=== PATIENT | male | born 1995 | race African-American/Black ===

== ENCOUNTER 2018-06-30 19:53 | Emergency (ER) | payer BC, SELFPAY ==
[2018-06-30 19:58] VITALS: BP 133/77; PULSE 84; RESP 16; TEMP 36.7; O2SAT 99
--- NOTE | 2018-06-30 20:01 | W.ED.GENAD ---
Discharge Plan Disposition Patient Disposition: HOME Condition: Good Discharge Details Chief Complaint: EyeProblem Clinical Impression: Corneal abrasion, right, Subconjunctival hemorrhage of right eye ED Provider: Oz Wahl Meds and New Rx's Prescriptions: New erythromycin 5 mg/gram (0.5 %) Ointment 3.5 g OD Q6H 7 Days Qty: 3.5 RF: 0 Discharge Instructions Instructions: Corneal Abrasion (ED) Additional Instructions: Use the ointment every six hours until you follow up with review specialist (either opthymology or fence installer helper). You should see someone early in the week. Use ibuprofen for discomfort. Return to ED for eye pain, change in vision, discharge. Medical Decision Making Patient with large corneal abrasion on exam. He usually wears glasses but does not have them with him. His visual acuity is 20/70 bilaterally. Pupils are equal and reactive. Mild subconjunctival hemrrhage present. No streaming of dye and no suggestion of ruptured globe. He is from [place], [place] and is here for basketball game. Instructed to use erythromycin and ibuprofen and follow up with review specialist on return to [place]. Return to ED for eye pain, drainage, change in vision, other concerns. HPI General Mode of arrival: ambulatory. Date/Time Provider Initiated Documentation: 06/30/18 20:01. Limitations to Documentation: no limitations. Information obtained by: patient. HPI Narrative: Patient presents with right eye injury that occurred while playing basketball tonight. He was inadvertantly poked in the eye. He has some blurry vision, eye discomfort and tearing but no loss of vision or pain. Denies other injury. Denies medical problems. Up to date on tetanus. Related Data Home Medications Medication Instructions Recorded Confirmed erythromycin 3.5 g OD Q6H 7 Days #3.5 gm 06/30/18 Previous Rx's Medication Instructions Recorded erythromycin 3.5 g OD Q6H 7 Days #3.5 gm 06/30/18 Allergies Allergy/AdvReac Type Severity Reaction Status Date / Time No Known Allergies Allergy Unverified 06/30/18 20:01 General Stated Complaint: EyeProblem SUSHMA: 4 Review of Systems Constitutional Denies headache(s) Eyes Reports blurry vision, Denies change in vision, Reports eye discharge (tearing), Reports irritation, Denies loss of peripheral vision, Denies loss of vision, Denies eye pain, Denies seeing flashes, Denies photophobia and Denies spots in vision ENT Denies dizziness, Denies facial pain, Denies headache(s), Denies epistaxis and Denies nose pain Neurologic Denies confusion, Denies dizziness, Denies headache(s) and Denies loss of vision Psychiatric Denies confusion [facility] Social History Smoking/Tobacco Use Status: Never Exam Const General: cooperative, comfortable and well developed Nutritional Appearance: well nourished Orientation: alert and oriented x3 HENMT Head: normocephalic and atraumatic General nose exam: external nose normal Face and sinus: normal facial exam Eyes Visual Sousa: normal visual sousa by confrontation Periorbital: periorbital findings normal Eyelids: eyelids normal Conjunctivae: conjunctival abnormality right subconjunctival hemorrhage Sclera: sclerae normal Cornea: corneas abnormal on the right fluorescein used and abrasion (large pie piece shaped abrasion from pupil towards the 3 o'clock position) Pupils: PERRL EOM: EOM intact bilaterally Neuro General: alert, oriented x3, gait normal, no focal motor deficits and CN's II-XI intact bilaterally Course Vital Signs Temperature 98.1 F 06/30/18 19:58 Pulse 84 06/30/18 19:58 Respiratory Rate 16 06/30/18 19:58 Blood Pressure 133/77 06/30/18 19:58 Pulse Oximetry 99 06/30/18 19:58 Temperature 98.1 F 06/30/18 19:58 Temperature Source Temporal Artery Scan 06/30/18 19:58 Pulse 84 06/30/18 19:58 Respiratory Rate 16 06/30/18 19:58 Blood Pressure 133/77 06/30/18 19:58 Blood Pressure Position Sitting 06/30/18 19:58 Pulse Oximetry 99 06/30/18 19:58 Oxygen Delivery Method Room Air 06/30/18 19:58 Oxygen Flow Rate 0 06/30/18 19:58 Pain Level 5 06/30/18 19:58
[2018-06-30] MEDS: Erythromycin Ophth Oint 3.5 GM TUBE OD (20:25)
[2018-06-30] MEDS: Ibuprofen 600 MG TAB PO (20:25)
[2018-06-30] MEDS: Tetracaine 0.5% 4 ML BTL (20:28)
[2018-06-30] MEDS: Fluorescein STRIPS 100/BOX 1 MG (20:29)
[2018-06-30 20:43] VITALS: BP 133/77; PULSE 84; RESP 16; TEMP 36.7; O2SAT 99
== END 2018-06-30 20:48 | disposition home or self-care (01) ==
PROVIDERS: Emergency Provider Emergency Medicine
DX: H57.11 Ocular pain, right eye (principal); H53.8 Other visual disturbances; S05.01XA Injury of conjunctiva and corneal abrasion without foreign body, right eye, initial encounter; H11.31 Conjunctival hemorrhage, right eye; W50.0XXA Accidental hit or strike by another person, initial encounter; Y93.67 Activity, basketball
CPT/HCPCS: 99283